=== PATIENT | female | born 1970 | race Caucasian/White ===

== ENCOUNTER 2024-01-31 12:10 | Emergency (ER) | payer BC ==
[2024-01-31] MEDS ORDERED: HYDROmorphone 1 MG/ML 1 ML SYRINGE ONE (12:37)
[2024-01-31] MEDS ORDERED: ACETAMINOPHEN TAB 500 MG TAB ONE (12:38)
[2024-01-31] MEDS ORDERED: SODIUM CHLORIDE 0.9% 1,000 ML BAG ONE (12:55)
[2024-01-31] MEDS ORDERED: IBUPROFEN 600 MG STARTER PACK 4 TAB BTL ONE (15:22)
[2024-01-31] MEDS ORDERED: traMADol 50 MG STARTER PACK 3 TAB BTL ONE (15:22)
[2024-01-31] MEDS ORDERED: KETOROLAC 15 MG/ML 1 ML VIAL ONE (16:08)
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
== END 2024-01-31 16:54 | disposition home or self-care (01) ==
LOC: MERGE 12:10 → EC 12:10
DX: S20.219A Contusion of unspecified front wall of thorax, initial encounter (principal); S09.90XA Unspecified injury of head, initial encounter; V89.2XXA Person injured in unspecified motor-vehicle accident, traffic, initial encounter; Y92.411 Interstate highway as the place of occurrence of the external cause
CPT/HCPCS: 72170; 71046; 72125; 70450; 99285; 96374; 96361; 96372; J1170; J1885